=== PATIENT | female | born 1945 | race Caucasian/White ===

== ENCOUNTER 2024-07-11 14:10 | Inpatient (IN) | payer OTHER, MEDICARE ==
[2024-07-11 14:40] VITALS: BMI 23.8
--- NOTE | 2024-07-11 15:28 | RAD REPORT ---
EXAMINATION: ONE VIEW CHEST XR CLINICAL INDICATION: Female, 79 years old.,PICC line placement TECHNIQUE: Frontal chest projection is submitted. Examination is limited by patient positioning and t echnique. COMPARISON: 03/08/2019 FINDINGS: Right arm PICC in place with tip in the mid to distal SVC. The lungs are well inflated and clear of n ew opacities, although mild scattered reticular opacities are stable. No pneumothorax or sizable effusion. The heart is stable in size. Numerous calcified bilateral hilar nodes, stable. IMPRESSION: No acute intrathoracic abnormalities. Satisfactory right arm PICC position. Stable reticular opacitie s suggesting fibrotic changes.
[2024-07-11] MEDS: Levofloxacin 750mg IV 750 MG/150 ML BAG IV SCH (15:54)
[2024-07-11] MEDS ORDERED: FLU (Fluarix Triv) TS24-25(6MOS UP)/PF 45 MCG/0.5 ML Syringe IM ONE (16:15)
[2024-07-11] MEDS: TOPIRAMATE 25 MG TAB PO SCH (20:13)
[2024-07-11] MEDS: Mupirocin NASAL 2 APPL/1 GM TUBE NAS SCH (20:13)
[2024-07-12] MEDS: PRIMIDONE 50 MG TAB PO SCH (08:02)
[2024-07-12] MEDS: PROPRANOLOL HCL 60 MG SA CAP PO SCH (08:04)
[2024-07-12] MEDS ORDERED: predniSONE 5 MG TAB PO SCH ×2 (09:00)
[2024-07-12] MEDS: CODEINE 30MG/APAP 300MG TAB PO PRN (13:48)
[2024-07-12 14:21] LABS: Absolute Basophils 0.1 K/uL (0-0.5); Absolute Eosinophils 0.3 K/uL (0-0.5); Absolute Lymphocytes (CBC) 1.3 K/uL (0.7-4.9); Absolute Monocytes 0.9 K/uL (0.1-1.3); Absolute Neutrophil 5.8 K/uL (1.8-8.0); Eosinophils % 3.2 % (0-4.4); Hematocrit 41.3 % (36.0-45.0); Lymphocytes % 15.4 % (15.3-44.8); MCH 30.1 pg (27.0-35.0); MCHC 33.9 g/dL (32.0-36.0); MPV 7.6 fL (7.6-11.3); Neutrophils % 69.4 % (41.7-73.7); Nucleated Red Blood Cells % 0.1 % (0-0); Platelets 279 thou/uL (152-406); RBC Red Blood Cell Count 4.64 M/uL (3.86-4.86); Red Cell Distribution Width 13.1 % (12.1-15.2)
[2024-07-12] MEDS: COLLAGENASE 30 GM OINTMENT TOP SCH (14:50)
--- NOTE | 2024-07-12 17:54 | CON ---
History Of Present Illness: This is a 79-year-old female I was consulted for evaluation of right tib ia and fibula MRI showing chronic osteomyelitis and ulceration which she has since March of this year after she bumped into something. She does not recall at this time. Denies any tobacco usage. No di abetes mellitus. Past Medical History: Tremor. Current Medications: Include Levaquin. See MAR for other medications. Allergies: NO KNOWN DRUG ALLERGIES. Review of Systems: 10-point review was performed. Physical Examination: General: This is a 79-year-old female, lying in bed, not in any acute cardiopulmonary distress. Vital Signs: Temperature 97, pulse 86, respirations 16, blood pressure 110/59. HEENT: Unremarkable. Neck: Supple. Lungs: Clear to auscultation. Heart: S1, S2, regular. Abdomen: Soft, nontender. Bowel sounds present. Extremities: Right leg with erythematous changes surrounding the mid tibial ulceration area with 90% slough and 10% granulation tissue. Assessment And Plan: Right tibial chronic osteomyelitis with chronic ulceration in the patient with history of sarcoidosis and tremor, on prednisone. We will recommend to apply Santyl and Xeroform gus ssing and Kerlix to cover the wound site. We will also recommend Levaquin and doxycycline 100 mg IV q.12 hours, total of 6 weeks, can be switched to oral after 3 weeks. Follow up with Dr. Vaca and Dr. Magana. Continue supportive care. Monitor signs of infection with WBC and fever trends. NF/MODL Voice ID: [id number] Report ID: [id number]
--- NOTE | 2024-07-12 18:25 | P.HP ---
Certification for Inpatient Patient admitted to: Inpatient Patient will require the following post-hospital care: Home Health Services Practitioner: I am a practitioner with admitting privileges, knowledge of patient current condition, hospital course, and medical plan of care. Services: Services provided to patient in accordance with Admission requirements found in Title 42 Section 412.3 of the Code of Federal Regulations Patient History Date of Service: 07/12/24 Reason for admission: infected right leg non healing wound with osteomyelitis, History of Present Illness: 79 y/o female with non healing wound right leg associated to erythema, very tender and osteomyelitis. Pt was seen by primary MD but noticed deterioration of wound despite outpatient treatment and i was consulted to evaluate, admit and treat from wound healing center. Pt has h/o radiation on that area to treat skin cancer. Allergies No Known Allergies Allergy (Unverified 05/26/16 07:23) Home Medications: Topiramate [Topamax] 25 mg PO BEDTIME 05/26/16 Alendronate Sodium 1 tab PO SEECOM 07/11/24 Prednisone 1 tab PO SEECOM 07/11/24 Primidone 2 tab PO DAILY 07/11/24 Propranolol HCl [Propranolol HCl ER] 1 tab PO DAILY 07/11/24 - Past Medical/Surgical History Has patient received pneumonia vaccine in the past: Yes Diabetic: No -: Osteoprosis -: Tremors -: BAsal CEll CA -: Kidney Stone Sx -: Cataract Sx - Family History Father -: Heart disease, Hypertension, Other (see notes) Notes: prostate CA Mother -: Cancer Notes: Colon CA, ALzheimers - Social History Smoking Status: Never smoker Alcohol use: No CD- Drugs: No Caffeine use: No Place of Residence: Home Review of Systems 10-point ROS is otherwise unremarkable General: As per HPI Integumentary: Lesions, As per HPI Physical Examination - Vital Signs Temperature: 97.7 F Blood Pressure: 119/80 Pulse: 66 Respirations: 16 Pulse Ox (%): 98 - Physical Exam General: Alert, In no apparent distress, Oriented x3, Cooperative HEENT: Normocephalic, PERRLA, EOMI Neck: Supple Respiratory: Normal air movement Cardiovascular: Regular rate/rhythm Gastrointestinal: Soft and benign Integumentary: No cyanosis, Skin breakdown, Skin lesion, Tenderness/swelling, Erythema, Warmth, Arterial ulcer Neurological: Normal speech - Studies Laboratory Data (last 24 hrs) 07/12/24 07/12/24 14:11 14:11 WBC 8.30 Hgb 14.0 Hct 41.3 Plt Count 279 Sodium 139 Potassium 4.0 BUN 21 H Creatinine 0.95 Glucose 91 Imagings Data: MRI reviewed with patient Assessment and Plan - Plan RIght lower leg non healing infected ulcer Plan iv abx picc line Dr Jean Baptiste consult [facility] Continue home meds. I discussed case and medications with primary MD ambulate Discharge Plan: Home Plan to discharge in: 48 Hours - Advance Directives Does patient have a Living Will: Yes Does patient have a Durable POA for Healthcare: Yes
[2024-07-13 09:34] VITALS: O2SAT 99
--- NOTE | 2024-07-13 10:00 | PN ---
Date of Progress Note: 07/13/2024 Subjective: Ms. Fofana is a 79-year-old patient, comes to us with a nonhealing wound over the leg regio n. The patient has history of radiation for skin cancer in that area, also found to have osteomyelit is. The patient was admitted to the hospital, started on antibiotics. Infectious Disease consult wa s done. MRI was done confirming the findings. The patient feels better. Dr. Benitez saw the patient yesterday and recommended certain antibiotics and wound care. Today, she is feeling better. Abdome n soft and depressible. Chest clear. Extremities, good capillary refill. Good peripheral pulses. Plan: I consulted mental health social worker to see how can we accomplish the recommendations from the Infectious Disease, which include Levaquin 750 q.24 hours intravenously and doxycycline 100 mg IV q.12 hours, t hat plan will be for 6 weeks, but there is an option that 3 weeks later, this can be changed to p.o. depending on the ID recommendations after followup about 3 weeks from now. For the wound care, we ar e going to use Santyl dressings daily and she [facility] t his Tuesday or Tuesday. We contacted the senior case manager to see how can she help us accomplish this d ischarge since the patient like to go home to. GISELA/MOIZ Voice ID: [id number] Report ID: [id number]
[2024-07-13] MEDS: DOXYCYCLINE 100 MG in NA CHLORIDE 0.9% 100 ML IVPB ONE (14:06)
[2024-07-13 16:16] VITALS: BP 131/76; TEMP 98.2
[2024-07-14] MEDS ORDERED: Levofloxacin 750mg IV 750 MG/150 ML BAG IV SCH (15:00)
== END 2024-07-13 18:47 | disposition home health service (06) | DRG 540 ==
LOC: 4TH 14:10 → OBSVTOIN 07-13 09:17
PROVIDERS: ADMIT Surgery; ATTEND Surgery
PROC: 02HV33Z Insertion of Infusion Device into Superior Vena Cava, Percutaneous Approach (ICD-10-PCS; principal; 2024-07-11)
DX: M86.661 Other chronic osteomyelitis, right tibia and fibula (principal); L97.819 Non-pressure chronic ulcer of other part of right lower leg with unspecified severity; C44.90 Unspecified malignant neoplasm of skin, unspecified; Z79.899 Other long term (current) drug therapy
CPT/HCPCS: 36415; 36569; 71045; 80048; 85025; 87070; 87075; 87205; G0378; G0379; J3590

== ENCOUNTER 2024-07-24 08:33 | Day surgery (SDC) | payer OTHER, MEDICARE ==
[2024-07-24] MEDS: NA CHLORIDE 0.9% IVPB SCH (09:00)
[2024-07-24] MEDS: DAPTOMYCIN IVPB SCH (09:00)
[2024-07-24 09:32] VITALS: BP 114/59; TEMP 98; O2SAT 99; BMI 24.0
== END 2024-07-24 10:03 | disposition home or self-care (01) ==
LOC: DS 08:33
PROVIDERS: ATTEND Family Medicine
DX: M86.8X6 Other osteomyelitis, lower leg (principal)
CPT/HCPCS: 96365; J0878